=== PATIENT | female | born 1945 | race Caucasian/White ===

== ENCOUNTER 2017-06-15 12:41 | Inpatient (IN) | payer MEDICARE, OTHER ==
--- NOTE | 2017-06-15 14:56 | EDM.PDOC ---
ED HPI GENERAL MEDICAL PROBLEM - General Stated Complaint: achy, fever, chills and dizzy Time Seen by Provider: 06/15/17 14:30 Source of Information: Reports: Patient History Limitations: Reports: No Limitations - History of Present Illness INITIAL COMMENTS - FREE TEXT/NARRATIVE: According to patient, she has been having intermittent fever since saturday on and off. with severe body ache and muscle aches. Patient claims she feels extremely tired and exhausted, which has gradually worsened over the past 3 days. She has been taking tylenol for fever and resting. She claims she felt some improvement yesterday, but today she did have another bout of fever and hence came into the emergency room. No cough, no nausea or vomiting. No wheezing or shortness of breath. No abdominal pain or distension.No dysuria. She does complain of dizziness and weakness. Pt is for [facility] and the only medical problem she has is Degenerative spinal disease and she takes flexeril and a pain med. Duration: Day(s): (5) Severity: Moderate Improves with: Reports: None Worsens with: Reports: None Associated Symptoms: Reports: Fever/Chills, Headaches, Weakness. Denies: Confusion, Chest Pain, Cough, Diaphoresis, Nausea/Vomiting, Rash, Seizure, Shortness of Breath, Syncope ED ROS GENERAL - Review of Systems Review Of Systems: See Below Constitutional: Reports: Fever, Chills, Malaise, Weakness, Fatigue, Decreased Appetite. Denies: Night Sweats, Diaphoresis HEENT: Denies: Eye Discharge, Rhinitis, Throat Pain, Throat Swelling Respiratory: Denies: Shortness of Breath, Wheezing, Cough, Sputum Cardiovascular: Denies: Chest Pain, Lightheadedness Endocrine: Denies: Fatigue GI/Abdominal: Denies: Abdominal Pain, Nausea, Vomiting : Denies: Dysuria, Flank Pain, Frequency, Hematuria Musculoskeletal: Reports: Joint Pain, Muscle Pain. Denies: Joint Swelling Skin: Denies: Pruritis, Rash Neurological: Denies: Confusion, Dizziness, Headache ED EXAM, GENERAL - Physical Exam Exam: See Below Exam Limited By: No Limitations General Appearance: Alert, WD/WN, No Apparent Distress, Other (does appear sick and drained out) Eye Exam: Bilateral Eye: EOMI, PERRL Ears: Normal External Exam, Normal Canal, Hearing Grossly Normal, Normal TMs Ear Exam: Bilateral Ear: TM normal Nose: Normal Inspection, Normal Mucosa, No Blood Throat/Mouth: Normal Inspection, Normal Lips, Normal Teeth, Normal Gums, Normal Oropharynx, Normal Voice, No Airway Compromise Head: Atraumatic, Normocephalic Neck: Normal Inspection, Supple, Non-Tender, Full Range of Motion Respiratory/Chest: No Respiratory Distress, Lungs Clear, Normal Breath Sounds, No Accessory Muscle Use, Chest Non-Tender Cardiovascular: Normal Peripheral Pulses, Regular Rate, Rhythm, No Edema, No Gallop, No JVD, No Murmur, No Rub GI/Abdominal: Normal Bowel Sounds, Soft, Non-Tender, No Organomegaly, No Distention, No Abnormal Bruit, No Mass Extremities: Normal Inspection, Normal Range of Motion, Non-Tender, Normal Capillary Refill, No Pedal Edema Skin Exam: Warm, Intact Course - Vital Signs Text/Narrative:: Pt has very nonspecific symptoms. Claims she has been having severe bodyaches and intermittent fever on and off for 5 days. No other symptoms. She does appear sick and fatigued, her rest of the clinical exam appears normal. Hence I did order CBC, CMP, UA and Chest xray. Pt's CBC shows elevated white count of 13.3 with neutrophilia of 84%, her chest xray appear normal. Her UA shows positive nitrities, + leucs and WBC of 40-50. Also her Sodium is 126 and chloride of 89, creat is 1.07. It does appear like patient has on going acute UTI with hyponatremia and hypochloremia. His electrolyte imbalance could be related to UTI and does explain her symptoms of fatigue and myalgia. I have discussed the results and the diagnosis with patient and her spouse. Will send Urine culture and followup on results. Plan is to admit patient for Observation. Will started her on IV Normal saline bolus of 500cc followed by NS at 125cc/hr. Also will give her IV Levaquin first dose today and change to oral Levaquin tomorrow. Will continue her home meds. I do anticipate pt symptoms improvement with her sodium correction - Orders/Labs/Meds Orders: Active Orders 24 hr Category Date Time Status Chest 2V [CR] Stat Exams 06/15/17 14:50 Taken CULTURE URINE [RM] Stat Lab 06/15/17 17:39 Uncollected Labs: Laboratory Tests 12/06/15/17 06/15/17 Range/Units 14:50 14:50 15:19 WBC 13.3 H D (4.0-11.0) K/uL RBC 3.56 L (3.80-5.80) M/uL Hgb 10.8 L (11.5-16.5) g/dL Hct 31.4 L D (37.0-47.0) % MCV 88 (76-96) fL MCH 30.3 (27.0-32.0) pg MCHC 34.4 (31.0-35.0) g/dL RDW 12.4 (11.0-16.0) % Plt Count 144 L (150-500) K/uL MPV 9.7 (6.0-10.0) fL Neut % (Auto) 84.0 H (45.0-70.0) % Lymph % (Auto) 4.4 L (20.0-40.0) % [place] % (Auto) 11.4 H (3.0-10.0) % Eos % (Auto) 0.0 L (1.0-5.0) % Baso % (Auto) 0.2 (0.0-0.5) % Neut # (Auto) 11.15 H (2.00-7.50) K/uL Lymph # (Auto) 0.58 L (1.50-4.00) K/uL [place] # (Auto) 1.51 H (0.20-0.80) K/uL Eos # (Auto) 0.00 L (0.04-0.40) K/uL Baso # (Auto) 0.03 (0.02-0.10) K/uL Sodium 126 L (136-145) mmol/L Potassium 3.2 L D (3.5-5.1) mmol/L Chloride 89 L* (98-107) mmol/L Carbon Dioxide 26.6 (21.0-32.0) mmol/L Anion Gap 13.6 (5.0-15.0) mmol/L BUN 12 D (8-26) mg/dL Creatinine 1.07 H D (0.55-1.02) mg/dL Est Cr Clr Drug Dosing TNP Estimated GFR (MDRD) 50 L (>60) MLS/MIN BUN/Creatinine Ratio 11.2 (6-25) Glucose 134 H D (74-100) mg/dL Calcium 8.9 (8.5-10.1) mg/dL Urine Color Yellow Urine Appearance Cloudy (CLEAR) Urine pH 5.5 (5.0-8.0) Ur Specific [place] 1.020 (1.003-1.030) Urine Protein 100 H (NEGATIVE) mg/dL Urine Glucose (UA) Negative (NEGATIVE) mg/dL Urine Ketones 15 H (NEGATIVE) mg/dL Urine Occult Blood Moderate H (NEGATIVE) Urine Nitrite Positive H (NEGATIVE) Urine Bilirubin Negative (NEGATIVE) Urine Urobilinogen 0.2 (0.2-1.0) E.U./dL Ur Leukocyte Esterase Small H (NEGATIVE) Urine RBC 10-20 H /HPF Urine WBC 40-50 H /HPF Urine WBC Clumps Few /HPF Ur Squamous Epith Cells Few /HPF Urine Bacteria Many H /HPF Departure - Departure Time of Disposition: 19:30 Disposition: Refer to Observation Condition: Fair Clinical Impression: Hyponatremia, UTI (urinary tract infection) - Discharge Information Referrals: PCP,None [Primary Care Provider] - - Problem List & Annotations (1) Hyponatremia SNOMED Code(s): 69653160 Code(s): E87.1 - HYPO-OSMOLALITY AND HYPONATREMIA Status: Acute Current Visit: Yes (2) UTI (urinary tract infection) SNOMED Code(s): 15090612 Code(s): N39.0 - URINARY TRACT INFECTION, SITE NOT SPECIFIED Status: Acute Current Visit: Yes - Problem List Review Problem List Initiated/Reviewed/Updated: Yes - My Orders Last 24 Hours: My Active Orders 06/15/17 14:50 Chest 2V [CR] Stat 06/15/17 17:39 CULTURE URINE [RM] Stat - Assessment/Plan Admission H&P: Please use this note as an admission H&P Last 24 Hours: My Active Orders 06/15/17 14:50 Chest 2V [CR] Stat 06/15/17 17:39 CULTURE URINE [RM] Stat Assessment:: Severe hyponatremia with UTI Plan: Pt has very nonspecific symptoms. Claims she has been having severe bodyaches and intermittent fever on and off for 5 days. No other symptoms. She does appear sick and fatigued, her rest of the clinical exam appears normal. Hence I did order CBC, CMP, UA and Chest xray. Pt's CBC shows elevated white count of 13.3 with neutrophilia of 84%, her chest xray appear normal. Her UA shows positive nitrities, + leucs and WBC of 40-50. Also her Sodium is 126 and chloride of 89, creat is 1.07. It does appear like patient has on going acute UTI with hyponatremia and hypochloremia. His electrolyte imbalance could be related to UTI and does explain her symptoms of fatigue and myalgia. I have discussed the results and the diagnosis with patient and her spouse. Will send Urine culture and followup on results. Plan is to admit patient for Observation. Will started her on IV Normal saline bolus of 500cc followed by NS at 125cc/hr. Also will give her IV Levaquin first dose today and change to oral Levaquin tomorrow. Will continue her home meds. I do anticipate pt symptoms improvement with her sodium correction
[2017-06-15] MEDS ORDERED: Sodium Chloride 0.9% 10 ML Syringe FLUSH PRN (17:59)
[2017-06-15] MEDS ORDERED: Sodium Chloride 0.9% 500 ML IV SCH (18:00)
[2017-06-15] MEDS ORDERED: Levofloxacin/Dextrose 5%-Water 500 MG in Premix Bag 1 BAG IV ONE (18:03)
--- NOTE | 2017-06-16 03:54 | CR ---
DATE OF SERVICE: 06/15/2017 CLINICAL DATE: Fever PA AND LATERAL CHEST The heart size is normal. There is increased density in the left lung base consistent with basilar atelectasis or infiltrate. Pneumonia should be considered. There is slight blunting of both costophrenic angles consistent with small bilateral pleural effusions or pleural scar. The lungs are otherwise clear. No pneumothorax. There is degenerative disk disease throughout the thoracic spine. There is mild right convexity scoliosis of the mid thoracic spine and mild left convexity scoliosis of the lower thoracic and upper lumbar spine. [id number] [facility]TD[facility]
[2017-06-16] MEDS ORDERED: FISH OIL PO SCH (08:00)
[2017-06-16] MEDS ORDERED: FATTY ACIDS PO SCH (08:00)
[2017-06-16] MEDS ORDERED: OMEGA PO SCH (08:00)
--- NOTE | 2017-06-16 12:10 | PCM.PN ---
- General Info Date of Service: 06/16/17 Subjective Update: Pt is more awake and less lethargic today. She claims she feels better today. She has been running fever still . Her Tmax is 101F. Has been feeding. IV NS still used for hydration, and to correct the electrolyte. She has been using bathroom frequently, also has some nocturia. No dysuria per patient. Functional Status: Reports: Pain Controlled, Tolerating Diet, Ambulating, Urinating - Review of Systems General: Reports: Fever, Weakness, Fatigue. Denies: Chills, Night Sweats, Appetite HEENT: Denies: Contact Lenses, Sinus Congestion, Sore Throat Pulmonary: Denies: Shortness of Breath, Pleuritic Chest Pain, Cough, Sputum, Hemoptysis Cardiovascular: Denies: Chest Pain, Lightheadedness Gastrointestinal: Reports: Flatus, Nausea. Denies: Abdominal Pain, Vomiting Genitourinary: Reports: Frequency, Flank Pain. Denies: Dysuria, Burning, Pain, Urgency Musculoskeletal: Reports: Back Pain (chronic) Skin: Denies: Pruritis, Rash - Patient Data Vitals - Most Recent: Last Vital Signs Temp 101.0 F H 06/16/17 10:49 Pulse 108 H 06/16/17 10:49 Resp 16 06/16/17 10:49 BP 127/58 L 06/16/17 10:49 Pulse Ox 92 L 06/16/17 10:49 Weight - Most Recent: 59.058 kg I&O - Last 24 Hours: Intake & Output 06/15/17 06/16/17 06/16/17 22:59 06:59 14:59 Intake Total 600 1853 Output Total 650 625 Balance -50 1228 Lab Results Last 24 Hours: Laboratory Results - last 24 hr 06/16/17 06/16/17 Range/Units 09:30 09:30 WBC 13.1 H (4.0-11.0) K/uL RBC 3.32 L (3.80-5.80) M/uL Hgb 10.1 L (11.5-16.5) g/dL Hct 29.4 L (37.0-47.0) % MCV 89 (76-96) fL MCH 30.4 (27.0-32.0) pg MCHC 34.4 (31.0-35.0) g/dL RDW 12.4 (11.0-16.0) % Plt Count 150 (150-500) K/uL MPV 9.9 (6.0-10.0) fL Neut % (Auto) 85.0 H (45.0-70.0) % Lymph % (Auto) 4.9 L (20.0-40.0) % [place] % (Auto) 9.9 (3.0-10.0) % Eos % (Auto) 0.1 L (1.0-5.0) % Baso % (Auto) 0.1 (0.0-0.5) % Neut # (Auto) 11.13 H (2.00-7.50) K/uL Lymph # (Auto) 0.64 L (1.50-4.00) K/uL [place] # (Auto) 1.29 H (0.20-0.80) K/uL Eos # (Auto) 0.01 L (0.04-0.40) K/uL Baso # (Auto) 0.01 L (0.02-0.10) K/uL Sodium 130 L (136-145) mmol/L Potassium 3.2 L (3.5-5.1) mmol/L Chloride 94 L (98-107) mmol/L Carbon Dioxide 26.3 (21.0-32.0) mmol/L Anion Gap 12.9 (5.0-15.0) mmol/L BUN 8 D (8-26) mg/dL Creatinine 1.03 H (0.55-1.02) mg/dL Est Cr Clr Drug Dosing 44.43 mL/min Estimated GFR (MDRD) 53 L (>60) MLS/MIN BUN/Creatinine Ratio 7.8 (6-25) Glucose 151 H (74-100) mg/dL Calcium 8.3 L (8.5-10.1) mg/dL Med Orders - Current: Current Medications Calcium Carbonate/Glycine (Tums) 500 mg PO DAILY [facility] Cyclobenzaprine HCl (Flexeril) 10 mg PO TID [facility] Gabapentin (Neurontin) 200 mg PO TID [facility] Sodium Chloride (Normal Saline) 500 mls @ 999 mls/hr IV .BOLUS [facility] Last Admin: 06/15/17 18:00 Dose: 999 mls/hr Sodium Chloride (Normal Saline) 1,000 mls @ 125 mls/hr IV ASDIRECTED [facility] Last Admin: 06/16/17 00:00 Dose: 125 mls/hr Lisinopril (Prinivil) 5 mg PO DAILY [facility] Non-Formulary Medication (Fish Oil/[place]-3 Fatty Acids [Fish Oil]) 500 mg PO DAILY [facility] Sodium Chloride (Saline Flush) 10 ml FLUSH ASDIRECTED PRN PRN Reason: Keep Vein Open Discontinued Medications Levofloxacin/Dextrose 500 mg/ (Premix) 100 mls @ 100 mls/hr IV ONETIME ONE Stop: 06/15/17 19:02 Last Admin: 06/15/17 18:30 Dose: 100 mls/hr - Exam General: Alert, Oriented HEENT: Pupils Equal, Pupils Reactive, EOMI, Mucous Membr. Moist/[place] Neck: Supple Lungs: Clear to Auscultation, Normal Respiratory Effort Cardiovascular: Regular Rate, Regular Rhythm GI/Abdominal Exam: Normal Bowel Sounds, Soft, Non-Tender, No Organomegaly, No Distention, No Abnormal Bruit, No Mass, Pelvis Stable Back Exam: CVA Tenderness (R). No: CVA Tenderness (L), Paraspinal Tenderness Extremities: Normal Inspection, Normal Range of Motion, Non-Tender, No Pedal Edema, Normal Capillary Refill Skin: Warm, Intact - Problem List & Annotations (1) Hyponatremia SNOMED Code(s): 78681867 Code(s): E87.1 - HYPO-OSMOLALITY AND HYPONATREMIA Status: Acute Current Visit: Yes (2) UTI (urinary tract infection) SNOMED Code(s): 91575359 Code(s): N39.0 - URINARY TRACT INFECTION, SITE NOT SPECIFIED Status: Acute Current Visit: Yes Qualifiers: Urinary tract infection type: acute pyelonephritis Qualified Code(s): N10 - Acute pyelonephritis - Problem List Review Problem List Initiated/Reviewed/Updated: Yes - My Orders Last 24 Hours: My Active Orders 06/15/17 15:00 CULTURE URINE [RM] Stat 06/15/17 17:59 Patient Status [ADT] Routine Bedrest Bathroom Privileges [RC] ASDIRECTED Oxygen Therapy [RC] VTE/DVT Education [RC] Per Unit Routine Vital Signs [RC] Q4H Sodium Chloride 0.9% [Saline Flush] 10 ml FLUSH ASDIRECTED PRN Peripheral IV Insertion Adult [OM.PC] Routine Resuscitation Status Routine 06/15/17 18:00 Sodium Chloride 0.9% [Normal Saline] 500 ml IV .BOLUS 06/15/17 18:01 Intake and Output [RC] 06,18 06/15/17 18:15 Sodium Chloride 0.9% [Normal Saline] 1,000 ml IV ASDIRECTED 06/16/17 08:00 Calcium Carbonate [Tums] 500 mg PO DAILY Cyclobenzaprine [Flexeril] 10 mg PO TID Fish Oil/[place]-3 Fatty Acids [Fish Oil] 500 mg PO DAILY Gabapentin [Neurontin] 200 mg PO TID Lisinopril [Prinivil] 5 mg PO DAILY 06/16/17 Breakfast Regular Diet [DIET] - Assessment Assessment:: Acute pyelonephritis - Plan Plan:: Pt has clinical improved, she is less lethargic today. She does answer question appropriately. Still complaints of tiredness. Has been running temp. Her CBC shows white count of 13.1. Her Sodium is up from 126 to 130, her chloride up from 89 to 94, creat is 1.03. Her sodium and chloride are correcting slowly with IV fluids. Will continue IV fluids. Also I have continued her on IV levaquin. on today's exam she does have right renal angle tenderness. With her symptoms and sign she does appear to have pyelonephritis. Will have renal ultrasound done on saturday to confirm. Meanwhile she is on treatment for Pyelonephritis. Waiting on urine culture final report. CBC and BMP ordered for tomorrow.
[2017-06-16] MEDS ORDERED: Levofloxacin/Dextrose 5%-Water 50 ML IV ONE ×2 (13:10→13:25)
[2017-06-16] MEDS: LISINOPRIL 5 MG PO SCH (13:30)
[2017-06-16] MEDS: Cyclobenzaprine 10 MG Tab **OWN MED PO SCH ×3 (13:30→20:44)
[2017-06-16] MEDS: Gabapentin 100 MG Cap **OWN MED PO SCH ×3 (13:30→20:44)
[2017-06-16] MEDS: Calcium Carbonate 500 MG Tab.Chew PO SCH (13:31)
[2017-06-16] MEDS: LEVOFLOXACIN IV SCH ×2 (13:31)
[2017-06-16] MEDS: WATER IV SCH ×2 (13:31)
[2017-06-16] MEDS: DEXTROSE 5% IV SCH ×2 (13:31)
[2017-06-16] MEDS: Acetaminophen 500 MG Tab PO PRN (13:32)
[2017-06-16] MEDS: Sodium Chloride 0.9% 1,000 ML IV SCH ×2 (17:34)
[2017-06-17] MEDS: Sodium Chloride 0.9% 1,000 ML IV SCH ×2 (01:22→09:23)
[2017-06-17] MEDS ORDERED: Levofloxacin/Dextrose 5%-Water 50 ML IV ONE (07:14)
[2017-06-17] MEDS: LISINOPRIL 5 MG PO SCH (08:03)
[2017-06-17] MEDS: Gabapentin 100 MG Cap **OWN MED PO SCH ×3 (08:03→19:50)
[2017-06-17] MEDS: Calcium Carbonate 500 MG Tab.Chew PO SCH (08:04)
[2017-06-17] MEDS: Cyclobenzaprine 10 MG Tab **OWN MED PO SCH ×3 (08:05→19:50)
[2017-06-17] MEDS ORDERED: NS + KCl 20mEq/L 1,000 ML IV SCH ×2 (09:30→18:30)
--- NOTE | 2017-06-17 09:32 | PCM.PN ---
- General Info Date of Service: 06/17/17 Subjective Update: Pt is feeling better, feels little weak. Her fever finally has broke and her tamx is 99.5F. Tolerating oral diet. No complaints. Functional Status: Reports: Tolerating Diet, Ambulating, Urinating - Review of Systems General: Reports: Fever, Weakness. Denies: Fatigue, Malaise HEENT: Denies: Sinus Congestion, Sore Throat Pulmonary: Denies: Cough, Sputum, Hemoptysis Cardiovascular: Denies: Chest Pain, Lightheadedness Gastrointestinal: Denies: Abdominal Pain, Flatus, Nausea, Vomiting Genitourinary: Reports: Frequency. Denies: Dysuria Musculoskeletal: Denies: Joint Pain, Joint Swelling Skin: Denies: Pruritis, Rash - Patient Data Vitals - Most Recent: Last Vital Signs Temp 99.5 F 06/17/17 04:00 Pulse 95 06/17/17 04:00 Resp 20 06/17/17 04:00 BP 123/59 L 06/17/17 08:03 Pulse Ox 92 L 06/17/17 04:00 Weight - Most Recent: 59.058 kg Med Orders - Current: Current Medications Acetaminophen (Tylenol Extra Strength) 500 mg PO Q6H PRN PRN Reason: Fever Last Admin: 06/16/17 13:32 Dose: 500 mg Calcium Carbonate/Glycine (Tums) 500 mg PO DAILY [facility] Last Admin: 06/17/17 08:04 Dose: Not Given Cyclobenzaprine HCl (Flexeril) 10 mg PO TID [facility] Last Admin: 06/17/17 08:05 Dose: 10 mg Gabapentin (Neurontin) 200 mg PO TID [facility] Last Admin: 06/17/17 08:03 Dose: 200 mg Sodium Chloride (Normal Saline) 500 mls @ 999 mls/hr IV .BOLUS [facility] Last Admin: 06/15/17 18:00 Dose: 999 mls/hr Sodium Chloride (Normal Saline) 1,000 mls @ 125 mls/hr IV ASDIRECTED [facility] Last Admin: 06/17/17 09:23 Dose: 125 mls/hr Levofloxacin/Dextrose (Levaquin In D5w 250 Mg/50 Ml) 50 mls @ 50 mls/hr IV Q24H [facility] Lisinopril (Prinivil) 5 mg PO DAILY [facility] Last Admin: 06/17/17 08:03 Dose: 5 mg Sodium Chloride (Saline Flush) 10 ml FLUSH ASDIRECTED PRN PRN Reason: Keep Vein Open Discontinued Medications Levofloxacin/Dextrose 500 mg/ (Premix) 100 mls @ 100 mls/hr IV ONETIME ONE Stop: 06/15/17 19:02 Last Admin: 06/15/17 18:30 Dose: 100 mls/hr Levofloxacin 250 mg/ Dextrose/ (Water) 110 mls @ 220 mls/hr IV DAILY [facility] Last Admin: 06/16/17 13:31 Dose: 220 mls/hr Levofloxacin/Dextrose (Levaquin In D5w 250 Mg/50 Ml) Confirm Administered Dose 50 mls @ as directed IV .[facility]-Cloud[facility] ONE Stop: 06/16/17 13:11 Last Admin: 06/16/17 13:32 Dose: Not Given Levofloxacin/Dextrose (Levaquin In D5w 250 Mg/50 Ml) Confirm Administered Dose 50 mls @ as directed IV .STCorNova-MED ONE Stop: 06/16/17 13:26 Last Admin: 06/16/17 13:32 Dose: Not Given Levofloxacin/Dextrose (Levaquin In D5w 250 Mg/50 Ml) Confirm Administered Dose 50 mls @ as directed IV .STCorNova-MED ONE Stop: 06/17/17 07:15 Last Admin: 06/17/17 09:23 Dose: Not Given Levofloxacin/Dextrose (Levaquin In D5w 250 Mg/50 Ml) 50 mls @ 50 mls/hr IV Q24H [facility] Last Admin: 06/17/17 09:21 Dose: 50 mls/hr Non-Formulary Medication (Fish Oil/[place]-3 Fatty Acids [Fish Oil]) 500 mg PO DAILY [facility] Last Admin: 06/16/17 22:40 Dose: Not Given - Exam General: Alert, Oriented HEENT: Pupils Equal, Pupils Reactive, EOMI, Mucous Membr. Moist/[place] Neck: Supple Lungs: Clear to Auscultation, Normal Respiratory Effort Cardiovascular: Regular Rate, Regular Rhythm Back Exam: Normal Inspection, Full Range of Motion, CVA Tenderness (R). No: CVA Tenderness (L) Extremities: Normal Inspection, Normal Range of Motion, Non-Tender, No Pedal Edema, Normal Capillary Refill - Problem List & Annotations (1) Hyponatremia SNOMED Code(s): 35705505 Code(s): E87.1 - HYPO-OSMOLALITY AND HYPONATREMIA Status: Acute Current Visit: Yes (2) UTI (urinary tract infection) SNOMED Code(s): 59289987 Code(s): N39.0 - URINARY TRACT INFECTION, SITE NOT SPECIFIED Status: Acute Current Visit: Yes Qualifiers: Urinary tract infection type: acute pyelonephritis Qualified Code(s): N10 - Acute pyelonephritis - Problem List Review Problem List Initiated/Reviewed/Updated: Yes - My Orders Last 24 Hours: My Active Orders 06/17/17 09:30 Sodium Chloride 0.9% with KCl 20 mEq @ 125 mL/Hr (1000 mL) NS + KCl 20mEq/L [ Normal Saline with 20 mEq KCl] 1,000 ml IV ASDIRECTED 06/18/17 07:30 BASIC METABOLIC PANEL,BMP [CHEM] Routine CBC WITH AUTO DIFF [HEME] Routine 06/18/17 08:00 Levofloxacin/Dextrose 5%-Water [Levaquin in D5W 250 MG/50 ML] 50 ml IV Q24H - Assessment Assessment:: Acute pyelonephritis improving - Plan Plan:: Pt has clinical improved, she is less lethargic today. She does answer question appropriately. Still complaints of tiredness. Has been running temp. Her CBC shows white count of 13.1. Her Sodium is up from 126 to 130, her chloride up from 89 to 94, creat is 1.03. Her sodium and chloride are correcting slowly with IV fluids. Will continue IV fluids. Also I have continued her on IV levaquin. on today's exam she does have right renal angle tenderness. With her symptoms and sign she does appear to have pyelonephritis. Will have renal ultrasound done on saturday to confirm. Meanwhile she is on treatment for Pyelonephritis. Waiting on urine culture final report. CBC and BMP ordered for tomorrow. 06/17/17 Pt is doing better.fever is down. Her CBC shows white count of 11K. Her sodium is 132, but her Potassium is low. I have started her on NA with 20 meq of KCL. Will repeat CBC and BMP in am and followup.
[2017-06-17] MEDS: LEVOFLOXACIN IV SCH ×2 (11:13)
[2017-06-17] MEDS: WATER IV SCH ×2 (11:13)
[2017-06-17] MEDS: DEXTROSE 5% IV SCH ×2 (11:13)
[2017-06-17] MEDS ORDERED: Levofloxacin/Dextrose 5%-Water 50 ML IV SCH (13:00)
[2017-06-17] MEDS: Acetaminophen 500 MG Tab PO PRN (15:51)
[2017-06-17] MEDS ORDERED: Lactobacillus Acidophilus/Lactobacillus Sporogenes (Probiotic) Tab ONE (16:01)
[2017-06-17] MEDS ORDERED: NS + KCl 20mEq/L 1,000 ML ONE (18:08)
[2017-06-18] MEDS: Sodium Chloride 0.9% 1,000 ML IV SCH (01:37)
[2017-06-18] MEDS: Acetaminophen 500 MG Tab PO PRN (04:13)
[2017-06-18] MEDS: Cyclobenzaprine 10 MG Tab **OWN MED PO SCH ×3 (08:00→19:44)
[2017-06-18] MEDS ORDERED: Lactobacillus Acidophilus/Lactobacillus Sporogenes (Probiotic) Tab PO SCH (08:00)
[2017-06-18] MEDS: Gabapentin 100 MG Cap **OWN MED PO SCH ×3 (08:00→19:44)
[2017-06-18] MEDS: Levofloxacin/Dextrose 5%-Water 50 ML IV SCH (08:00)
[2017-06-18] MEDS: LISINOPRIL 5 MG PO SCH (08:00)
[2017-06-18] MEDS: Calcium Carbonate 500 MG Tab.Chew PO SCH (08:00)
[2017-06-18] MEDS ORDERED: Potassium Chloride 20 MEQ Tab.ER ONE ×2 (14:10→14:11)
[2017-06-18] MEDS ORDERED: Gabapentin 100 MG Cap ONE ×2 (14:10)
[2017-06-18] MEDS ORDERED: Lactobacillus Acidophilus/Lactobacillus Sporogenes (Probiotic) Tab ONE (14:10)
[2017-06-18] MEDS ORDERED: Cyclobenzaprine 10 MG Tab ONE ×2 (14:10)
[2017-06-18] MEDS ORDERED: Lisinopril 5 MG Tab ONE (14:10)
[2017-06-18] MEDS ORDERED: Levofloxacin/Dextrose 5%-Water 250 MG/50 ML Premix Bag IV ONE (14:10)
--- NOTE | 2017-06-18 14:39 | US ---
DATE OF SERVICE: 06/18/17 CLINICAL DATA: pyelonephritis RENAL ULTRASOUND The right kidney measures 11.3 cm in length. The left kidney measures 9.7 cm in length. The renal cortices are normal thickness and echogenicity. No hydronephrosis or masses. The bladder is fluid filled and distended. It appears normal sonographically. The uterus has heterogeneous echotexture most likely representing a leiomyomatous uterus. No aortic aneurysm. [id number] [facility]
--- NOTE | 2017-06-18 14:43 | CR ---
DATE OF SERVICE: 06/18/17 CLINICAL DATA: FEVER, WHEEZING PA AND LATERAL CHEST No priors. The heart size is normal. There are bilateral pleural effusions, left greater than right. There are densities in both lung bases, left greater than right, consistent with basilar atelectasis or infiltrate. Pneumonia should be considered. No pneumothorax. No other significant findings. [id number] [facility]
--- NOTE | 2017-06-18 15:24 | PCM.PN ---
- General Info Date of Service: 06/18/17 Subjective Update: Patient states she feels about the same but has no complaints with breathing. Patient denies any new concerns or issues. Functional Status: Reports: Tolerating Diet - Review of Systems General: Reports: Weakness HEENT: Reports: No Symptoms Pulmonary: Reports: No Symptoms Cardiovascular: Reports: No Symptoms Gastrointestinal: Reports: No Symptoms Genitourinary: Reports: No Symptoms Musculoskeletal: Reports: No Symptoms - Patient Data Vitals - Most Recent: Last Vital Signs Temp 37.2 C 06/18/17 00:00 Pulse 85 06/18/17 00:00 Resp 16 06/18/17 00:00 BP 133/59 L 06/18/17 00:00 Pulse Ox 92 L 06/18/17 00:00 Weight - Most Recent: 59.058 kg Med Orders - Current: Current Medications Acetaminophen (Tylenol Extra Strength) 500 mg PO Q6H PRN PRN Reason: Fever Last Admin: 06/18/17 04:13 Dose: 500 mg Calcium Carbonate/Glycine (Tums) 500 mg PO DAILY [facility] Last Admin: 06/17/17 08:04 Dose: Not Given Cyclobenzaprine HCl (Flexeril) 10 mg PO TID [facility] Last Admin: 06/17/17 19:50 Dose: 10 mg Gabapentin (Neurontin) 200 mg PO TID [facility] Last Admin: 06/17/17 19:50 Dose: 200 mg Sodium Chloride (Normal Saline) 1,000 mls @ 100 mls/hr IV ASDIRECTED [facility] Last Admin: 06/18/17 01:37 Dose: 100 mls/hr Levofloxacin/Dextrose (Levaquin In D5w 250 Mg/50 Ml) 50 mls @ 50 mls/hr IV Q24H [facility] Lactobacillus Acidophilus (Acidolphilus Extra Strength) 1 tab PO DAILY@1200 [facility] Lisinopril (Prinivil) 5 mg PO DAILY [facility] Last Admin: 06/17/17 08:03 Dose: 5 mg Sodium Chloride (Saline Flush) 10 ml FLUSH ASDIRECTED PRN PRN Reason: Keep Vein Open Discontinued Medications Sodium Chloride (Normal Saline) 500 mls @ 999 mls/hr IV .BOLUS [facility] Last Admin: 06/15/17 18:00 Dose: 999 mls/hr Levofloxacin/Dextrose 500 mg/ (Premix) 100 mls @ 100 mls/hr IV ONETIME ONE Stop: 06/15/17 19:02 Last Admin: 06/15/17 18:30 Dose: 100 mls/hr Levofloxacin 250 mg/ Dextrose/ (Water) 110 mls @ 220 mls/hr IV DAILY [facility] Last Admin: 06/17/17 11:13 Dose: Not Given Levofloxacin/Dextrose (Levaquin In D5w 250 Mg/50 Ml) Confirm Administered Dose 50 mls @ as directed IV .STK-MED ONE Stop: 06/16/17 13:11 Last Admin: 06/16/17 13:32 Dose: Not Given Levofloxacin/Dextrose (Levaquin In D5w 250 Mg/50 Ml) Confirm Administered Dose 50 mls @ as directed IV .STK-MED ONE Stop: 06/16/17 13:26 Last Admin: 06/16/17 13:32 Dose: Not Given Levofloxacin/Dextrose (Levaquin In D5w 250 Mg/50 Ml) Confirm Administered Dose 50 mls @ as directed IV .STK-MED ONE Stop: 06/17/17 07:15 Last Admin: 06/17/17 09:23 Dose: Not Given Levofloxacin/Dextrose (Levaquin In D5w 250 Mg/50 Ml) 50 mls @ 50 mls/hr IV Q24H [facility] Last Admin: 06/17/17 09:21 Dose: 50 mls/hr Potassium Chloride/Sodium Chloride (Normal Saline With 20 Meq Kcl) 1,000 mls @ 125 mls/hr IV ASDIRECTED [facility] Potassium Chloride 20 meq/ (Sodium Chloride) 1,010 mls @ 125 mls/hr IV ASDIRECTED [facility] Stop: 06/17/17 18:20 Last Admin: 06/17/17 09:44 Dose: 125 mls/hr Potassium Chloride/Sodium Chloride (Normal Saline With 20 Meq Kcl) 1,000 mls @ 125 mls/hr IV ASDIRECTED [facility] Last Admin: 06/17/17 18:10 Dose: 125 mls/hr Potassium Chloride/Sodium Chloride (Normal Saline With 20 Meq Kcl) Confirm Administered Dose 1,000 mls @ as directed .ROUTE .STK-MED ONE Stop: 06/17/17 18:09 Last Admin: 06/17/17 19:30 Dose: Not Given Lactobacillus Acidophilus (Acidolphilus Extra Strength) Confirm Administered Dose 1 tab .ROUTE .STK-MED ONE Stop: 06/17/17 16:02 Last Admin: 06/17/17 16:19 Dose: 1 tab Lactobacillus Acidophilus (Acidolphilus Extra Strength) 1 tab PO DAILY [facility] Non-Formulary Medication (Fish Oil/[place]-3 Fatty Acids [Fish Oil]) 500 mg PO DAILY [facility] Last Admin: 06/16/17 22:40 Dose: Not Given Potassium Chloride (Klor-Con M20) Confirm Administered Dose 20 meq .ROUTE .STK- MED ONE Stop: 06/18/17 14:12 Sodium Chloride (Normal Saline) 1,000 ml .ROUTE .STK-MED ONE Stop: 06/16/17 09:26 - Exam General: Alert, Oriented, Cooperative HEENT: Pupils Equal, Pupils Reactive, EOMI Neck: Supple Lungs: Normal Respiratory Effort, Decreased Breath Sounds Cardiovascular: Regular Rate, Regular Rhythm GI/Abdominal Exam: Normal Bowel Sounds, Soft, Non-Tender - Problem List & Annotations (1) Hyponatremia SNOMED Code(s): 55790801 Code(s): E87.1 - HYPO-OSMOLALITY AND HYPONATREMIA Status: Acute Current Visit: Yes (2) UTI (urinary tract infection) SNOMED Code(s): 09699312 Code(s): N39.0 - URINARY TRACT INFECTION, SITE NOT SPECIFIED Status: Acute Current Visit: Yes Qualifiers: Urinary tract infection type: acute pyelonephritis Qualified Code(s): N10 - Acute pyelonephritis (3) Lung abnormality SNOMED Code(s): 41799491 Code(s): J98.4 - OTHER DISORDERS OF LUNG Status: Acute Current Visit: Yes Annotation/Comment:: Possible pneumonia as well as UTI - Problem List Review Problem List Initiated/Reviewed/Updated: Yes - My Orders Last 24 Hours: My Active Orders 06/18/17 08:00 Acidophilus/Lactobac Spor [Acidolphilus Extra Strength] 1 tab PO DAILY - Assessment Assessment:: Acute pyelonephritis improving - Plan Plan:: Pt has clinical improved, she is less lethargic today. She does answer question appropriately. Still complaints of tiredness. Has been running temp. Her CBC shows white count of 13.1. Her Sodium is up from 126 to 130, her chloride up from 89 to 94, creat is 1.03. Her sodium and chloride are correcting slowly with IV fluids. Will continue IV fluids. Also I have continued her on IV levaquin. on today's exam she does have right renal angle tenderness. With her symptoms and sign she does appear to have pyelonephritis. Will have renal ultrasound done on saturday to confirm. Meanwhile she is on treatment for Pyelonephritis. Waiting on urine culture final report. CBC and BMP ordered for tomorrow. 06/17/17 Pt is doing better.fever is down. Her CBC shows white count of 11K. Her sodium is 132, but her Potassium is low. I have started her on NA with 20 meq of KCL. Will repeat CBC and BMP in am and followup. 06/18/17 Patient has improved but states she does not feel much better and weak. Her WBC has improved but potassium continues to be low. Continue NS with KCL. Repeat labs in AM. F/u CXR.
[2017-06-19] MEDS: Gabapentin 100 MG Cap **OWN MED PO SCH ×2 (08:11→13:45)
[2017-06-19] MEDS: LISINOPRIL 5 MG PO SCH (08:11)
[2017-06-19] MEDS: Cyclobenzaprine 10 MG Tab **OWN MED PO SCH (08:12)
[2017-06-19] MEDS: Calcium Carbonate 500 MG Tab.Chew PO SCH (08:12)
[2017-06-19] MEDS: Levofloxacin/Dextrose 5%-Water 50 ML IV SCH (08:23)
--- NOTE | 2017-06-19 10:45 | PCM.DCSUM1 ---
Discharge Summary - Discharge Data Discharge Date: 06/19/17 Discharge Disposition: Home, Self-Care 01 Condition: Stable - Discharge Diagnosis/Problem(s) (1) Hyponatremia SNOMED Code(s): 83214316 ICD Code: E87.1 - HYPO-OSMOLALITY AND HYPONATREMIA Status: Resolved Current Visit: Yes (2) UTI (urinary tract infection) SNOMED Code(s): 41881296 ICD Code: N39.0 - URINARY TRACT INFECTION, SITE NOT SPECIFIED Status: Resolved Current Visit: Yes Qualifiers: Urinary tract infection type: acute pyelonephritis Qualified Code(s): N10 - Acute pyelonephritis (3) Lung abnormality SNOMED Code(s): 85399606 ICD Code: J98.4 - OTHER DISORDERS OF LUNG Status: Suspected Current Visit : Yes Problem Details: Possible pneumonia as well as UTI - Patient Instructions Diet: Usual Diet as Tolerated Activity: As Tolerated Driving: Do Not Drive - Discharge Plan Home Medications: Home Meds Calcium Carbonate [Calcium] 1 tab PO DAILY 06/15/17 [History] Cyclobenzaprine [Flexeril] 1 tab PO TID 06/15/17 [History] Fish Oil/[place]-3 Fatty Acids [Fish Oil] 500 mg PO DAILY 06/15/17 [History] Gabapentin [Neurontin] 2 tab PO TID 06/15/17 [History] Lisinopril [Lisinopril] 1 tab PO DAILY 06/15/17 [History] Forms: ED Department Discharge Referrals: PCP,None [Primary Care Provider] - - Discharge Summary/Plan Comment DC Time >30 min.: Yes Discharge Summary/Plan Comment: Discussed plan of care, antibiotics use and monitoring and f/u in clinic in3-5 days or if symptoms return sooner for re-evaluation. Discussed supportive care and management and f/u as directed. - Patient Data Vitals - Most Recent: Last Vital Signs Temp 37.7 C 06/19/17 04:00 Pulse 82 06/19/17 04:00 Resp 14 06/19/17 04:00 BP 143/74 H 06/19/17 08:11 Pulse Ox 93 L 06/19/17 04:00 Weight - Most Recent: 59.058 kg I&O - Last 24 hours: Intake & Output 06/18/17 06/19/17 06/19/17 22:59 06:59 14:59 Intake Total 1415 300 Output Total 9248 8600 Balance -385 -1600 Lab Results - Last 24 hrs: Laboratory Results - last 24 hr 06/18/17 06/18/17 06/19/17 Range/Units 07:30 07:30 07:50 WBC 9.3 6.3 D (4.0-11.0) K/uL RBC 3.10 L 3.23 L (3.80-5.80) M/uL Hgb 9.5 L 9.9 L (11.5-16.5) g/dL Hct 27.1 L 28.2 L (37.0-47.0) % MCV 87 87 (76-96) fL MCH 30.6 30.7 (27.0-32.0) pg MCHC 35.1 H 35.1 H (31.0-35.0) g/dL RDW 12.6 12.9 (11.0-16.0) % Plt Count 201 208 (150-500) K/uL MPV 9.9 10.3 H (6.0-10.0) fL Neut % (Auto) 7.2 L 69.1 (45.0-70.0) % Lymph % (Auto) 1.0 L 15.1 L (20.0-40.0) % Drew % (Auto) 1.0 L 12.5 H (3.0-10.0) % Eos % (Auto) 0.1 L 3.0 (1.0-5.0) % Baso % (Auto) 0.0 0.3 (0.0-0.5) % Neut # (Auto) 77.40 H 4.38 (2.00-7.50) K/uL Lymph # (Auto) 10.60 H 0.96 L (1.50-4.00) K/uL Drew # (Auto) 10.80 H 0.79 (0.20-0.80) K/uL Eos # (Auto) 1.10 H 0.19 (0.04-0.40) K/uL Baso # (Auto) 0.10 0.02 (0.02-0.10) K/uL Sodium 137 (136-145) mmol/L Potassium 3.1 L (3.5-5.1) mmol/L Chloride 103 (98-107) mmol/L Carbon Dioxide 24.2 (21.0-32.0) mmol/L Anion Gap 12.9 (5.0-15.0) mmol/L BUN 6 L (8-26) mg/dL Creatinine 0.73 (0.55-1.02) mg/dL Est Cr Clr Drug Dosing 62.68 mL/min Estimated GFR (MDRD) > 60 (>60) MLS/MIN BUN/Creatinine Ratio 8.2 (6-25) Glucose 129 H (74-100) mg/dL Calcium 8.0 L (8.5-10.1) mg/dL 06/19/17 Range/Units 07:50 WBC (4.0-11.0) K/uL RBC (3.80-5.80) M/uL Hgb (11.5-16.5) g/dL Hct (37.0-47.0) % MCV (76-96) fL MCH (27.0-32.0) pg MCHC (31.0-35.0) g/dL RDW (11.0-16.0) % Plt Count (150-500) K/uL MPV (6.0-10.0) fL Neut % (Auto) (45.0-70.0) % Lymph % (Auto) (20.0-40.0) % Drew % (Auto) (3.0-10.0) % Eos % (Auto) (1.0-5.0) % Baso % (Auto) (0.0-0.5) % Neut # (Auto) (2.00-7.50) K/uL Lymph # (Auto) (1.50-4.00) K/uL Drew # (Auto) (0.20-0.80) K/uL Eos # (Auto) (0.04-0.40) K/uL Baso # (Auto) (0.02-0.10) K/uL Sodium 137 (136-145) mmol/L Potassium 3.7 (3.5-5.1) mmol/L Chloride 103 (98-107) mmol/L Carbon Dioxide 25.6 (21.0-32.0) mmol/L Anion Gap 12.1 (5.0-15.0) mmol/L BUN 5 L (8-26) mg/dL Creatinine 0.74 (0.55-1.02) mg/dL Est Cr Clr Drug Dosing 61.83 mL/min Estimated GFR (MDRD) > 60 (>60) MLS/MIN BUN/Creatinine Ratio 6.8 (6-25) Glucose 107 H (74-100) mg/dL Calcium 8.7 (8.5-10.1) mg/dL Med Orders - Current: Current Medications Acetaminophen (Tylenol Extra Strength) 500 mg PO Q6H PRN PRN Reason: Fever Last Admin: 06/18/17 04:13 Dose: 500 mg Calcium Carbonate/Glycine (Tums) 500 mg PO DAILY [facility] Last Admin: 06/19/17 08:12 Dose: 500 mg Cyclobenzaprine HCl (Flexeril) 10 mg PO TID [facility] Last Admin: 06/19/17 08:12 Dose: 10 mg Gabapentin (Neurontin) 200 mg PO TID [facility] Last Admin: 06/19/17 08:11 Dose: 200 mg Sodium Chloride (Normal Saline) 1,000 mls @ 100 mls/hr IV ASDIRECTED [facility] Last Admin: 06/18/17 01:37 Dose: 100 mls/hr Levofloxacin/Dextrose (Levaquin In D5w 250 Mg/50 Ml) 50 mls @ 50 mls/hr IV Q24H [facility] Last Admin: 06/19/17 08:23 Dose: 50 mls/hr Lactobacillus Acidophilus (Acidolphilus Extra Strength) 1 tab PO DAILY@1200 [facility] Lisinopril (Prinivil) 5 mg PO DAILY [facility] Last Admin: 06/19/17 08:11 Dose: 5 mg Sodium Chloride (Saline Flush) 10 ml FLUSH ASDI[facility] PRN PRN Reason: Keep Vein Open Discontinued Medications Sodium Chloride (Normal Saline) 500 mls @ 999 mls/hr IV .BOLUS [facility] Last Admin: 06/15/17 18:00 Dose: 999 mls/hr Levofloxacin/Dextrose 500 mg/ (Premix) 100 mls @ 100 mls/hr IV ONETIME ONE Stop: 06/15/17 19:02 Last Admin: 06/15/17 18:30 Dose: 100 mls/hr Levofloxacin 250 mg/ Dextrose/ (Water) 110 mls @ 220 mls/hr IV DAILY [facility] Last Admin: 06/17/17 11:13 Dose: Not Given Levofloxacin/Dextrose (Levaquin In D5w 250 Mg/50 Ml) Confirm Administered Dose 50 mls @ as directed IV .STK-MED ONE Stop: 06/16/17 13:11 Last Admin: 06/16/17 13:32 Dose: Not Given Levofloxacin/Dextrose (Levaquin In D5w 250 Mg/50 Ml) Confirm Administered Dose 50 mls @ as directed IV .STK-MED ONE Stop: 06/16/17 13:26 Last Admin: 06/16/17 13:32 Dose: Not Given Levofloxacin/Dextrose (Levaquin In D5w 250 Mg/50 Ml) Confirm Administered Dose 50 mls @ as directed IV .STK-MED ONE Stop: 06/17/17 07:15 Last Admin: 06/17/17 09:23 Dose: Not Given Levofloxacin/Dextrose (Levaquin In D5w 250 Mg/50 Ml) 50 mls @ 50 mls/hr IV Q24H [facility] Last Admin: 06/17/17 09:21 Dose: 50 mls/hr Potassium Chloride/Sodium Chloride (Normal Saline With 20 Meq Kcl) 1,000 mls @ 125 mls/hr IV ASDIRECTED [facility] Potassium Chloride 20 meq/ (Sodium Chloride) 1,010 mls @ 125 mls/hr IV ASDIRECTED [facility] Stop: 06/17/17 18:20 Last Admin: 06/17/17 09:44 Dose: 125 mls/hr Potassium Chloride/Sodium Chloride (Normal Saline With 20 Meq Kcl) 1,000 mls @ 125 mls/hr IV ASDIRECTED [facility] Last Admin: 06/17/17 18:10 Dose: 125 mls/hr Potassium Chloride/Sodium Chloride (Normal Saline With 20 Meq Kcl) Confirm Administered Dose 1,000 mls @ as directed .ROUTE .STK-MED ONE Stop: 06/17/17 18:09 Last Admin: 06/17/17 19:30 Dose: Not Given Lactobacillus Acidophilus (Acidolphilus Extra Strength) Confirm Administered Dose 1 tab .ROUTE .STK-MED ONE Stop: 06/17/17 16:02 Last Admin: 06/17/17 16:19 Dose: 1 tab Lactobacillus Acidophilus (Acidolphilus Extra Strength) 1 tab PO DAILY [facility] Non-Formulary Medication (Fish Oil/[place]-3 Fatty Acids [Fish Oil]) 500 mg PO DAILY [facility] Last Admin: 06/16/17 22:40 Dose: Not Given Potassium Chloride (Klor-Con M20) Confirm Administered Dose 20 meq .ROUTE .STK- MED ONE Stop: 06/18/17 14:12 Last Admin: 06/18/17 15:00 Dose: Not Given Sodium Chloride (Normal Saline) 1,000 ml .ROUTE .STK-MED ONE Stop: 06/16/17 09:26 *Q Meaningful Use (DIS) - VTE *Q VTE Criteria *Q: - Stroke *Q Stroke Criteria *Q: - AMI *Q AMI Criteria *Q:
[2017-06-19] MEDS ORDERED: Lactobacillus Acidophilus/Lactobacillus Sporogenes (Probiotic) Tab PO SCH (12:00)
== END 2017-06-19 15:45 | disposition home or self-care (01) | DRG 690 ==
LOC: LB.ED 12:41 → LB.MS 17:30 → UNDOADMOB 17:30 → LB.MS 17:59 → OBSVTOIN 06-17 08:45 → INTOOBSV 06-17 08:45 → LB.MS 06-17 11:34 → OBSVTOIN 06-17 11:34
PROVIDERS: ADMIT Family Medicine; ATTEND Family Medicine
DX: N10 Acute pyelonephritis (principal); E87.1 Hypo-osmolality and hyponatremia; B96.20 Unspecified Escherichia coli [E. coli] as the cause of diseases classified elsewhere; E87.8 Other disorders of electrolyte and fluid balance, not elsewhere classified; E87.6 Hypokalemia; R50.9 Fever, unspecified; R53.1 Weakness; R42 Dizziness and giddiness; J98.4 Other disorders of lung; M47.9 Spondylosis, unspecified
CPT/HCPCS: 36415 ×3; 71020; 80048 ×3; 81001; 85025 ×3; 87086; 87088; 87804 ×2; 99285; A9270 ×9; J1956 ×2; J3480; J7040 ×7; J7060; 76770; 87186; 96365; 96376; 99219; 99225; G0378